=== PATIENT | female | born 1990 | race Caucasian/White ===

== ENCOUNTER 2022-11-14 11:03 | Inpatient (IN) | payer MEDICAID ==
[~2022-11-14] VITALS: Ht 154.9 cm; Wt 57.6 kg
[2022-11-14] MEDS ORDERED: KETOROLAC 30MG/ML VIAL IM ONE (11:30)
[2022-11-14 12:47] LABS: HEMATOCRIT. 42.5 % (36.0-48.0); HEMOGLOBIN. 14.3 g/dL (12.0-16.0); MEAN CORPUSCULAR HEMOGLOBIN 29.8 pg (28.0-32.0); MEAN CORPUSCULAR VOLUME 88.7 fL (81.0-99.0); MEAN PLATELET VOLUME 8.5 fl (7.4-10.4); PLATELET 233 x1000/uL (130-400); RED CELL DISTRIBUTION WIDTH 13.5 % (11.6-14.6)
[2022-11-14 13:00] LABS: CHLORIDE 104 mEq/L (98-107)
[2022-11-14 13:40] LABS: PLATELET ESTIMATE NORMAL
[2022-11-14] MEDS ORDERED: ACETAMINOPHEN 325MG TABLET PO ONE (15:15)
[2022-11-14] MEDS ORDERED: KETOROLAC 30MG/ML VIAL IV ONE (16:00)
[2022-11-14] MEDS ORDERED: SODIUM CHLORIDE 0.9% 1,000 ML IV ONE ×3 (16:00→21:00)
[2022-11-14 16:19] LABS: CLARITY URINE CLOUDY (CLEAR); COLOR URINE DARK YELLOW (YELLOW); KETONES URINE 3+ (NEGATIVE); LEUKOCYTE ESTERASE URINE 1+ (NEGATIVE); NITRITE URINE POSITIVE (NEGATIVE); OCCULT BLOOD URINE 3+ (NEGATIVE); PROTEIN URINE 3+ (NEGATIVE); SPECIFIC GRAVITY URINE 1.032 (1.005-1.030)
[2022-11-14] MEDS ORDERED: CEFTRIAXONE 1 G PREMIX 50 ML IV ONE (16:30)
[2022-11-15] MEDS ORDERED: SODIUM CHLORIDE 0.9% 1,000 ML IV ONE
[2022-11-15] MEDS ORDERED: ACETAMINOPHEN 325MG TABLET PO PRN (02:00)
[2022-11-15] MEDS: HYDROCODONE/ACETAMINOPHEN 10/325MG TABLET PO PRN ×3 (02:00→21:02)
[2022-11-15] MEDS ORDERED: NALOXONE HCL 0.4MG/ML VIAL IV PRN ×2 (07:45→19:30)
[2022-11-15 08:00] VITALS: BP 90/59
[2022-11-15 08:30] VITALS: BP 90/59
[2022-11-15] MEDS: ONDANSETRON HCL 4MG/2ML INJ IV PRN ×2 (08:54→18:34)
[2022-11-15] MEDS: FAMOTIDINE 20MG TABLET PO SCH ×2 (08:54→20:57)
[2022-11-15] MEDS: ENOXAPARIN 40MG/0.4ML SYR SUBCUT SCH (08:55)
[2022-11-15] MEDS ORDERED: CEFTRIAXONE 1,000 MG in DEXTROSE 5% WATER 50 ML IV SCH (09:00)
[2022-11-15 12:00] VITALS: BP 98/63
[2022-11-15] MEDS: OSELTAMIVIR 75MG CAPSULE PO SCH ×2 (12:00→20:57)
[2022-11-15] MEDS: ACETAMINOPHEN 325MG TABLET PO PRN (12:05)
[2022-11-15] MEDS: KETOROLAC 30MG/ML VIAL IV PRN (12:06)
[2022-11-15 16:00] VITALS: BP 92/61
[2022-11-15] MEDS: CEFTRIAXONE 1,000 MG in DEXTROSE 5% WATER 50 ML IV SCH (16:20)
[2022-11-15 17:09] LABS: *AMPHETAMINES SCREEN URINE NEGATIVE (NEGATIVE); *BARBITURATES SCREEN URINE NEGATIVE (NEGATIVE); *BENZODIAZEPINES SCREEN URINE NEGATIVE (NEGATIVE); *COCAINE SCREEN URINE NEGATIVE (NEGATIVE); CANNABINOID URINE SCREEN NEGATIVE (NEGATIVE); METHADONE URINE SCREEN NEGATIVE (NEGATIVE); PHENCYCLIDINE URINE SCREEN NEGATIVE (NEGATIVE)
[2022-11-15 17:25] LABS: OPIATES URINE SCREEN PRESUMTIVE POSITIVE (NEGATIVE)
[2022-11-15 20:00] VITALS: BP 94/59
[2022-11-15 23:57] VITALS: BP 128/84
[2022-11-16] MEDS: HYDROCODONE/ACETAMINOPHEN 10/325MG TABLET PO PRN ×2 (01:18→21:40)
[2022-11-16 04:00] VITALS: BP 92/57
[2022-11-16] MEDS: ONDANSETRON HCL 4MG/2ML INJ IV PRN (06:23)
[2022-11-16 08:00] VITALS: BP 93/63
[2022-11-16 08:19] LABS: BASOPHILS % 0.4 % (0.0-2.0); EOSINOPHILS % 0.3 % (0.0-5.0); HEMATOCRIT. 32.5 % (36.0-48.0); HEMOGLOBIN. 11.1 g/dL (12.0-16.0); LYMPHOCYTES % 7.1 % (20.0-50.0); MEAN CORPUSCULAR HEMOGLOBIN 29.8 pg (28.0-32.0); MEAN PLATELET VOLUME 8.3 fl (7.4-10.4); MONOCYTES % 9.2 % (2.0-8.0); PLATELET 155 x1000/uL (130-400); RED BLOOD CELL COUNT 3.74 mill/uL (4.2-5.4); RED CELL DISTRIBUTION WIDTH 13.4 % (11.6-14.6)
[2022-11-16] MEDS: ACETAMINOPHEN 325MG TABLET PO PRN (08:27)
[2022-11-16] MEDS: OSELTAMIVIR 75MG CAPSULE PO SCH ×2 (08:27→21:37)
[2022-11-16] MEDS: FAMOTIDINE 20MG TABLET PO SCH ×2 (08:27→21:37)
[2022-11-16] MEDS: ENOXAPARIN 40MG/0.4ML SYR SUBCUT SCH (08:28)
[2022-11-16 08:29] LABS: CHLORIDE 107 mEq/L (98-107)
[2022-11-16 12:00] VITALS: BP 90/60
[2022-11-16] MEDS: DEXT 5%/0.45% NACL 1000ML 1,000 ML IV SCH (13:19)
[2022-11-16 16:00] VITALS: BP 103/65
[2022-11-16] MEDS: CEFTRIAXONE 1,000 MG in DEXTROSE 5% WATER 50 ML IV SCH (16:29)
[2022-11-16] MEDS: KETOROLAC 30MG/ML VIAL IV PRN (16:29)
[2022-11-16 20:00] VITALS: BP 96/63
[2022-11-17] VITALS: BP 100/68
[2022-11-17] MEDS: ACETAMINOPHEN 325MG TABLET PO PRN (03:38)
[2022-11-17] MEDS: KETOROLAC 30MG/ML VIAL IV PRN ×2 (03:38→10:45)
[2022-11-17] MEDS: ONDANSETRON HCL 4MG/2ML INJ IV PRN ×2 (03:42→10:45)
[2022-11-17] MEDS: DEXT 5%/0.45% NACL 1000ML 1,000 ML IV SCH (03:53)
[2022-11-17 04:00] VITALS: BP 97/58
[2022-11-17 07:57] LABS: HCG SCREEN NEGATIVE
[2022-11-17 08:00] VITALS: BP 96/62
[2022-11-17] MEDS: FAMOTIDINE 20MG TABLET PO SCH (08:21)
[2022-11-17] MEDS: OSELTAMIVIR 75MG CAPSULE PO SCH (08:21)
[2022-11-17] MEDS: ENOXAPARIN 40MG/0.4ML SYR SUBCUT SCH (08:22)
[2022-11-17] MEDS ORDERED: DOCUSATE SODIUM 250MG CAPSULE PO PRN (10:45)
[2022-11-17] MEDS ORDERED: LEVO750T68 MT (11:04)
[2022-11-17] MEDS ORDERED: TAM75 PO (11:04)
[2022-11-17 11:35] VITALS: BP 107/77
[2022-11-17 12:00] VITALS: BP 107/77
[2022-11-17] MEDS ORDERED: ONDA8TAB13 MT (12:04)
== END 2022-11-17 12:05 | disposition home or self-care (01) | DRG 720 ==
LOC: ER 11:03 → MICUSO 19:19 → EDBEDREQTM 19:28 → EDBEDREQSVC 19:28 → EDBEDREQ 19:28 → 6EST 11-15 06:40
PROVIDERS: ADMIT Internal Medicine; ATTEND Internal Medicine
DX: A41.51 Sepsis due to Escherichia coli [E. coli] (principal); E87.1 Hypo-osmolality and hyponatremia; I10 Essential (primary) hypertension; N39.0 Urinary tract infection, site not specified; N12 Tubulo-interstitial nephritis, not specified as acute or chronic; R65.20 Severe sepsis without septic shock; J10.1 Influenza due to other identified influenza virus with other respiratory manifestations
CPT/HCPCS: 36415; 71045; 76770; 80048; 80053; 80305; 81003; 82962; 83605; 84145; 84484; 84703; 85025; 87077; 87186; 87426; 87804; 93005; 99285; C9803; J0696; J1650; J1885; J2405; J7030; J7060